=== PATIENT | female | born 1970 | race Caucasian/White ===

== ENCOUNTER → 2018-12-23 11:54 | Outpatient (CLI) | payer OTHER, SELFPAY ==
--- NOTE | 2018-12-23 | DI.MG.S_ITS ---
BILATERAL DIGITAL SCREENING MAMMOGRAM 3D/2D WITH CAD: 12/23/2018 CLINICAL: Routine screening. Family history of breast cancer. Comparison is made to exam dated: 12/08/2017 mammogram - [facility]. There are scattered fibroglandular elements in both breasts. Current study was also evaluated with a Computer Aided Detection (CAD) system. No significant masses, calcifications, or other findings are seen in either breast. There has been no significant interval change. IMPRESSION: NEGATIVE There is no mammographic evidence of malignancy. A 1 year screening mammogram is recommended. This exam was interpreted at Station ID: [id number]. NOTE: For mammograms, a report in lay terms will be sent to the patient. Approximately 15% of breast malignancies will not be visualized mammographically. In the management of a palpable breast mass, a negative mammogram must not discourage biopsy of a clinically suspicious lesion. Electronically Signed By: Zora malagon/andrea:12/23/2018 16:23:20 letter sent: Normal Exam ACR BI-RADS Category 1: Negative 3341F
== END ==
PROVIDERS: PCP Family Medicine; Visit Provider Family Medicine
DX: Z12.31 Encounter for screening mammogram for malignant neoplasm of breast (principal); Z80.3 Family history of malignant neoplasm of breast
CPT/HCPCS: 77063; 77067

== ENCOUNTER → 2025-07-22 14:00 | Outpatient (CLI) | payer OTHER, SELFPAY ==
--- NOTE | 2025-07-22 14:02 | DI.MRI.S_ITS ---
PROCEDURE: MR KNEE LT WO CON INDICATIONS: rule out meniscus tear TECHNIQUE: Noncontrast sagittal PD fast spin echo and T2 fast spin echo with fat saturation, sagittal 3-D FLASH with fat saturation; coronal T1 spin echo and PD fast spin echo with fat saturation, and axial PD fast spin echo with fat saturation through the knee. COMPARISON: [facility], CR, ORTHO-XR KNEE WB LEFT, 07/16/2025, 11:15. FINDINGS: Image quality: Excellent. Menisci: Medial extrusion of the medial meniscus. Amorphous and linear horizontal high T2 signal intensity traverses the peripheral 3rd of the medial meniscal body, extending into the medial gutter, indicating a trapped meniscal tear. Linear horizontal high T2 signal intensity traverses the inner, middle, and peripheral thirds of the lateral meniscal body, demonstrating inferior articular surface extension, indicating horizontal tearing. Cruciate ligaments: The anterior and posterior cruciate ligaments appear intact. Medial structures: The medial collateral ligament appears intact. Visualized portions of the pes anserinus tendons appear normal. No abnormal bursal fluid. Lateral structures: The lateral collateral ligament, long and short heads of the biceps femoris tendon appear intact. The popliteus tendon appears normal. Iliotibial band appears normal. Anterior structures: The quadriceps and patellar tendons appear intact. Lateral patellar subluxation. Lateral ventral trochlear prominence with shallow trochlear groove. No edema in the infrapatellar fat pad. Bones and cartilage: No bone marrow contusions or fractures. Subchondral cyst formation within the lateral patellar facet. Tricompartmental periarticular osteophyte formation. Severe articular cartilage loss diffusely overlies the weight-bearing aspects of the medial femoral condyle and medial tibial plateau. Moderate to high-grade articular cartilage loss overlies the lateral patellar facet. Joint space: There is physiologic knee joint fluid. No Bernabe's cyst. Small ganglion cyst along the popliteus. Normal appearing synovial plicae are incidentally noted. IMPRESSION: 1. Medial and lateral meniscal tearing. 2. Tricompartmental osteoarthritis with associated articular cartilage loss. 3. Findings consistent with lateral patellofemoral friction syndrome in the appropriate clinical setting. Dictated by: Tonya Aguayo M.D. on 07/23/2025 at 11:49 Approved by: Tonya Aguayo M.D. on 07/23/2025 at 11:51
== END ==
LOC: MRI 14:01
PROVIDERS: PCP Family Medicine; Referring Provider Family Medicine; Visit Provider Orthopaedic Surgery
DX: S83.242A Other tear of medial meniscus, current injury, left knee, initial encounter (principal); S83.282A Other tear of lateral meniscus, current injury, left knee, initial encounter; M17.12 Unilateral primary osteoarthritis, left knee; M25.562 Pain in left knee; M67.462 Ganglion, left knee
CPT/HCPCS: 73721